=== PATIENT | male | born 1995 | race Caucasian/White ===

== ENCOUNTER 2022-04-01 15:09 | Inpatient (IN) | payer OTHER ==
[~2022-04-01] VITALS: Ht 185.4 cm; Wt 87.0 kg
[2022-04-01] MEDS ORDERED: PIPERACILLIN/TAZ 3.375G PREMIX 50 ML IV NR (17:15)
[2022-04-01] MEDS ORDERED: PIPERACILLIN/TAZOBACTAM 3.375GM/50ML PREMIX IV ONE (17:15)
[2022-04-01] MEDS ORDERED: VANCOMYCIN 1G PREMIX 200 ML IV SCH (17:15)
[2022-04-01 17:26] LABS: HEMATOCRIT 49.7 % (42.0-52.0); HEMOGLOBIN 17.2 g/dL (14.0-18.0); MEAN CORPUSCULAR HEMOGLOBIN 30.2 pg (28.0-32.0); PLATELET 477 x1000/uL (130-400); RED BLOOD CELL COUNT 5.71 mill/uL (4.7-6.1); RED CELL DISTRIBUTION WIDTH 13.1 % (11.6-14.6)
[2022-04-01 17:34] LABS: CHLORIDE 105 mEq/L (98-107)
[2022-04-01] MEDS ORDERED: LEVOFLOXACIN 500MG PREMIX 100 ML IV ONE (19:30)
[2022-04-02 04:00] VITALS: BP 130/72
[2022-04-25] MEDS ORDERED: ZINC220C2 PO (10:08)
[2022-04-25] MEDS ORDERED: INSLIS SUBCUT (10:08)
[2022-04-25] MEDS ORDERED: LANTUSUD SUBCUT (10:08)
[2022-04-25] MEDS ORDERED: ASCO500T20 PO (10:08)
== END 2022-04-02 10:19 | disposition left against medical advice (07) | DRG 344 ==
LOC: EDBD 15:09 → ER 15:09 → MICUSO 19:33 → EDBEDREQTM 19:47 → EDBEDREQ 19:47
PROVIDERS: ADMIT Internal Medicine; ATTEND Internal Medicine
DX: E11.69 Type 2 diabetes mellitus with other specified complication (principal); M86.8X7 Other osteomyelitis, ankle and foot; Z53.29 Procedure and treatment not carried out because of patient's decision for other reasons; Z99.3 Dependence on wheelchair; Z88.0 Allergy status to penicillin; Z89.411 Acquired absence of right great toe
CPT/HCPCS: 36415; 73630; 80053; 82962; 85027; 85651; 99285; J1956; J2543; J3370

== ENCOUNTER 2022-04-21 13:40 | Inpatient (IN) | payer OTHER ==
[~2022-04-21] VITALS: Ht 182.9 cm; Wt 85.7 kg
[2022-04-21] MEDS ORDERED: ACETAMINOPHEN 325MG TABLET PO STA (14:24)
[2022-04-21] MEDS ORDERED: SULFAMETHOXAZOLE/TRIMETHOPRIM 800/160MG TABLET PO ONE (14:30)
[2022-04-21 15:52] LABS: CHLORIDE 104 mEq/L (98-107)
[2022-04-21] MEDS ORDERED: DIPHENHYDRAMINE 50MG CAPSULE PO ONE (16:30)
[2022-04-21] MEDS ORDERED: VANCOMYCIN 1G PREMIX 200 ML IV SCH (17:30)
[2022-04-21] MEDS ORDERED: AZTREONAM 2 GM in DEXT 5% WATER 100 ML IV SCH (17:30)
[2022-04-21 21:56] LABS: BASOPHILS % 0.3 % (0.0-2.0); EOSINOPHILS % 4.1 % (0.0-5.0); HEMATOCRIT. 44.6 % (42.0-52.0); HEMOGLOBIN. 15.3 g/dL (14.0-18.0); LYMPHOCYTES % 31.8 % (20.0-50.0); MEAN CORPUSCULAR HEMOGLOBIN 29.2 pg (28.0-32.0); MONOCYTES % 6.5 % (2.0-8.0); NEUTROPHILS % 57.3 % (40.0-76.0); PLATELET 459 x1000/uL (130-400); RED BLOOD CELL COUNT 5.24 mill/uL (4.7-6.1); RED CELL DISTRIBUTION WIDTH 13.1 % (11.6-14.6)
[2022-04-22] MEDS ORDERED: DOCUSATE SODIUM 100MG CAPSULE PO PRN (06:00)
[2022-04-22] MEDS ORDERED: DEXTROSE 50% WATER 50ML SYRINGE IV PRN (06:00)
[2022-04-22] MEDS ORDERED: ONDANSETRON HCL 4MG/2ML INJ IV PRN (06:00)
[2022-04-22] MEDS ORDERED: MAGNESIUM/ALUMINUM HYDROXIDE/SIMETHICONE 30ML UDC PO PRN (06:00)
[2022-04-22] MEDS ORDERED: CLONIDINE 0.1MG TABLET PO PRN (06:00)
[2022-04-22] MEDS ORDERED: IPRATROPIUM/ALBUTEROL 0.5-3(2.5)MG/3ML NEB HHN PRN (06:00)
[2022-04-22] MEDS ORDERED: GUAIFENESIN 200MG/10ML SUGAR FREE UDC PO PRN (06:00)
[2022-04-22] MEDS ORDERED: ACETAMINOPHEN 325MG TABLET PO PRN ×2 (06:00)
[2022-04-22] MEDS ORDERED: NITROGLYCERIN 0.4MG TABLET SL SL PRN (07:00)
[2022-04-22] MEDS ORDERED: ZOLPIDEM TARTRATE 5MG TABLET PO PRN (07:00)
[2022-04-22] MEDS: MEROPENEM 1,000 MG in SODIUM CHLORIDE 0.9% 100 ML IV SCH ×2 (08:53→16:27)
[2022-04-22] MEDS: INSULIN LISPRO 100 UNITS/ML SUBCUT SCH ×4 (08:54→22:20)
[2022-04-22] MEDS: VANCOMYCIN 1.25GM PMX (XELLIA) 250 ML IV SCH ×2 (08:55→15:00)
[2022-04-22] MEDS: BLOOD SUGAR DIAGNOSTIC STRIP TEST SCH ×4 (09:00→21:00)
[2022-04-22] MEDS: ENOXAPARIN 40MG/0.4ML SYR SUBCUT SCH (09:00)
[2022-04-22] MEDS: ASCORBIC ACID 500 MG TABLET PO SCH ×2 (09:00→22:17)
[2022-04-22] MEDS: ZINC SULFATE 220 MG ( 50 ) CAPSULE PO SCH (09:00)
[2022-04-22] MEDS: FAMOTIDINE 20MG TABLET PO SCH ×2 (09:00→22:17)
[2022-04-22 09:49] LABS: VITAMIN B12 SERUM 485 pg/mL (211-911)
[2022-04-22 11:30] VITALS: BP 128/76
[2022-04-22] MEDS: KETOROLAC 15MG/ML VIAL IV PRN (12:15)
[2022-04-22] MEDS: INSULIN GLARGINE 100 UNITS/ML SUBCUT SCH (12:32)
[2022-04-22] MEDS ORDERED: IPRATROPIUM BROMIDE (0.02%) 0.5MG/2.5ML NEB HHN PRN (14:00)
[2022-04-22] MEDS ORDERED: ALBUTEROL (0.083%) 2.5MG/3ML NEB HHN PRN (14:00)
[2022-04-22] MEDS ORDERED: METF-414 MT (14:15)
[2022-04-22] MEDS ORDERED: INSU100V37 SQ (14:15)
[2022-04-22] MEDS ORDERED: HYDR-4350 MT (14:15)
[2022-04-22] MEDS ORDERED: INSU100I28 SQ (14:15)
[2022-04-22 16:00] VITALS: BP 134/82
[2022-04-22 20:00] VITALS: BP 119/70
[2022-04-23] MEDS: VANCOMYCIN 1.25GM PMX (XELLIA) 250 ML IV SCH ×2 (01:08→07:02)
[2022-04-23] MEDS: MEROPENEM 1,000 MG in SODIUM CHLORIDE 0.9% 100 ML IV SCH ×4 (01:33→21:17)
[2022-04-23 03:22] LABS: CHLORIDE 103 mEq/L (98-107)
[2022-04-23 03:33] LABS: BASOPHILS % 0.6 % (0.0-2.0); EOSINOPHILS % 5.7 % (0.0-5.0); HEMATOCRIT. 42.5 % (42.0-52.0); HEMOGLOBIN. 14.7 g/dL (14.0-18.0); LYMPHOCYTES % 30.6 % (20.0-50.0); MEAN CORPUSCULAR HEMOGLOBIN 29.8 pg (28.0-32.0); MEAN CORPUSCULAR VOLUME 86.2 fL (80.0-94.0); MEAN PLATELET VOLUME 7.6 fl (7.4-10.4); MONOCYTES % 8.6 % (2.0-8.0); NEUTROPHILS % 54.5 % (40.0-76.0); PLATELET 420 x1000/uL (130-400); RED BLOOD CELL COUNT 4.93 mill/uL (4.7-6.1); RED CELL DISTRIBUTION WIDTH 13.2 % (11.6-14.6)
[2022-04-23 03:35] LABS: HDL CHOLESTEROL 34 mg/dL (40-59); LDL CHOLESTEROL 50 mg/dL (5-100); PHOSPHORUS 3.7 mg/dL (2.5-4.9)
[2022-04-23] MEDS: KETOROLAC 15MG/ML VIAL IV PRN ×2 (05:46→18:26)
[2022-04-23] MEDS: BLOOD SUGAR DIAGNOSTIC STRIP TEST SCH ×4 (07:46→21:16)
[2022-04-23 08:00] VITALS: BP 115/63
[2022-04-23] MEDS: ASCORBIC ACID 500 MG TABLET PO SCH ×2 (08:12→21:13)
[2022-04-23] MEDS: FAMOTIDINE 20MG TABLET PO SCH ×2 (08:12→21:13)
[2022-04-23] MEDS: ZINC SULFATE 220 MG ( 50 ) CAPSULE PO SCH (08:12)
[2022-04-23] MEDS: INSULIN LISPRO 100 UNITS/ML SUBCUT SCH ×4 (08:24→21:24)
[2022-04-23] MEDS: ENOXAPARIN 40MG/0.4ML SYR SUBCUT SCH (10:02)
[2022-04-23] MEDS: INSULIN GLARGINE 100 UNITS/ML SUBCUT SCH ×2 (10:10→21:25)
[2022-04-23 12:00] VITALS: BP 128/73
[2022-04-23] MEDS ORDERED: DEXTROSE 50% WATER 50ML SYRINGE IV PRN (14:00)
[2022-04-23] MEDS ORDERED: INSULIN LISPRO 100 UNITS/ML SUBCUT ONE (14:15)
[2022-04-23] MEDS ORDERED: INSULIN LISPRO 100 UNITS/ML SUBCUT SCH (14:30)
[2022-04-23 15:54] VITALS: BP 121/74
[2022-04-23 20:00] VITALS: BP 132/53
[2022-04-23] MEDS: VANCOMYCIN 1G PREMIX 200 ML IV SCH (22:34)
[2022-04-24] VITALS: BP 113/74
[2022-04-24 04:00] VITALS: BP 118/61
[2022-04-24] MEDS: MEROPENEM 1,000 MG in SODIUM CHLORIDE 0.9% 100 ML IV SCH ×3 (05:25→21:13)
[2022-04-24] MEDS: VANCOMYCIN 1G PREMIX 200 ML IV SCH ×3 (06:26→22:47)
[2022-04-24] MEDS: BLOOD SUGAR DIAGNOSTIC STRIP TEST SCH ×3 (07:20→21:20)
[2022-04-24 08:00] VITALS: BP 127/77
[2022-04-24] MEDS: INSULIN LISPRO 100 UNITS/ML SUBCUT SCH ×8 (08:20→21:31)
[2022-04-24] MEDS: ZINC SULFATE 220 MG ( 50 ) CAPSULE PO SCH (08:28)
[2022-04-24] MEDS: ENOXAPARIN 40MG/0.4ML SYR SUBCUT SCH (08:28)
[2022-04-24] MEDS: FAMOTIDINE 20MG TABLET PO SCH ×2 (08:28→21:20)
[2022-04-24] MEDS: ASCORBIC ACID 500 MG TABLET PO SCH ×2 (08:28→21:20)
[2022-04-24] MEDS: KETOROLAC 15MG/ML VIAL IV PRN (10:31)
[2022-04-24] MEDS: INSULIN GLARGINE 100 UNITS/ML SUBCUT SCH ×2 (11:21→21:40)
[2022-04-24 12:00] VITALS: BP 146/90
[2022-04-24 16:00] VITALS: BP 152/89
[2022-04-24] MEDS ORDERED: DEXTROSE 50% WATER 50ML SYRINGE IV PRN (17:30)
[2022-04-24 20:00] VITALS: BP 120/66
[2022-04-25] VITALS: BP 113/65
[2022-04-25] MEDS: MEROPENEM 1,000 MG in SODIUM CHLORIDE 0.9% 100 ML IV SCH ×2 (05:24→14:09)
[2022-04-25 05:40] LABS: CHLORIDE 105 mEq/L (98-107)
[2022-04-25 05:46] LABS: VANCOMYCIN TROUGH 12.9 ug/mL (5.0-10.0)
[2022-04-25] MEDS: VANCOMYCIN 1G PREMIX 200 ML IV SCH (06:10)
[2022-04-25] MEDS: BLOOD SUGAR DIAGNOSTIC STRIP TEST SCH ×2 (07:20→12:20)
[2022-04-25 08:00] VITALS: BP 123/79
[2022-04-25] MEDS: ENOXAPARIN 40MG/0.4ML SYR SUBCUT SCH (08:17)
[2022-04-25] MEDS: ASCORBIC ACID 500 MG TABLET PO SCH (08:17)
[2022-04-25] MEDS: ZINC SULFATE 220 MG ( 50 ) CAPSULE PO SCH (08:17)
[2022-04-25] MEDS: FAMOTIDINE 20MG TABLET PO SCH (08:17)
[2022-04-25] MEDS: INSULIN LISPRO 100 UNITS/ML SUBCUT SCH ×4 (08:25→14:43)
[2022-04-25] MEDS ORDERED: INSLIS SUBCUT (10:08)
[2022-04-25] MEDS ORDERED: LANTUSUD SUBCUT (10:08)
[2022-04-25] MEDS ORDERED: ZINC220C2 PO (10:08)
[2022-04-25] MEDS ORDERED: ASCO500T20 PO (10:08)
[2022-04-25] MEDS: INSULIN GLARGINE 100 UNITS/ML SUBCUT SCH (10:59)
[2022-04-25] MEDS ORDERED: LIDOCAINE HCL/PF 1% 10 MG/ML 5ML VIAL ONE (12:38)
== END 2022-04-25 16:30 | DRG 623 ==
LOC: ER 13:40 → 6EST 04-22 04:12 → CANRESERV 04-22 08:22 → ENRESERV 04-22 08:22
PROVIDERS: ADMIT Internal Medicine; ATTEND Internal Medicine
PROC: 0LBV0ZZ Excision of Right Foot Tendon, Open Approach (ICD-10-PCS; principal; 2022-04-22)
PROC: 02HV33Z Insertion of Infusion Device into Superior Vena Cava, Percutaneous Approach (ICD-10-PCS; 2022-04-25)
PROC: B548ZZA Ultrasonography of Superior Vena Cava, Guidance (ICD-10-PCS; 2022-04-25)
DX: E11.69 Type 2 diabetes mellitus with other specified complication (principal); E87.1 Hypo-osmolality and hyponatremia; L03.115 Cellulitis of right lower limb; M86.8X7 Other osteomyelitis, ankle and foot; F17.210 Nicotine dependence, cigarettes, uncomplicated; Z88.0 Allergy status to penicillin; Z89.411 Acquired absence of right great toe; Z99.3 Dependence on wheelchair
CPT/HCPCS: 36415; 36573; 71045; 73630; 73721; 80048; 80053; 80061; 80202; 82607; 82962; 83036; 83735; 84100; 84439; 84443; 85025; 85651; 87070; 87075; 87077; 87186; 93005; 93970; 99285; J1650; J1815; J1885; J2185; J3370; J3490; J7050; J7060; Q0163